=== PATIENT | male | born 1950 | race Caucasian/White ===

== ENCOUNTER 2023-08-19 04:12 | Day surgery (SDC) | payer OTHER ==
[2023-08-17 14:58] VITALS: BMI 26.2
[2023-08-19] MEDS ORDERED: PROPOFOL 20 ML ONE (09:27)
[2023-08-19] MEDS ORDERED: MIDAZOLAM HCL 2 MG/2 ML SINGLE DOSE VIAL ONE (09:27)
[2023-08-19] MEDS ORDERED: BUPIVACAINE HCL/PF 0.5% (5MG/ML) 10 ML VIAL ONE (10:25)
[2023-08-19] MEDS ORDERED: SUCCINYLCHOLINE CHLORIDE 200 MG/10 ML SYRINGE ONE (10:46)
[2023-08-19] MEDS ORDERED: ceFAZolin SODIUM 1 GM VIAL IVPB ONE (11:00)
[2023-08-19] MEDS ORDERED: ceFAZolin SODIUM 1 GM VIAL ONE ×2 (11:01)
[2023-08-19] MEDS ORDERED: LIDOCAINE 1%/EPI 1:100000 (20 ML MULTI DOSE VIAL) INF ONE ×2 (11:02)
[2023-08-19] MEDS ORDERED: BUPIVACAINE HCL/PF 0.5% (5MG/ML) 10 ML VIAL IJ ONE ×2 (11:03)
[2023-08-19] MEDS ORDERED: ACETAMINOPHEN 325 MG TABLET (FP) PO PRN (11:55)
[2023-08-19] MEDS ORDERED: ONDANSETRON 4 MG/2 ML VIAL IVPUSH PRN (11:55)
[2023-08-19] MEDS ORDERED: oxyCODONE HCL 5 MG TABLET PO PRN (11:55)
[2023-08-19] MEDS ORDERED: LACTATED RINGERS SOLUTION 1,000 ML IV SCH (12:00)
[2023-08-19 14:00] VITALS: RESP 18
[2023-08-19 14:38] VITALS: BP 123/64; PULSE 64; TEMP 97.3
== END 2023-08-19 14:10 | disposition home or self-care (01) ==
LOC: JASU-SURG 04:12
PROVIDERS: ATTEND Surgery
PROC: 07B10ZX Excision of Right Neck Lymphatic, Open Approach, Diagnostic (ICD-10-PCS; principal; 2023-08-19 10:00)
DX: R59.0 Localized enlarged lymph nodes (principal)
CPT/HCPCS: 88307-TC; 88341-TC; 88342-TC; 94760